=== PATIENT | male | born 1995 ===

== ENCOUNTER 2022-03-30 15:40 | Emergency (ER) | payer SELFPAY ==
[~2022-03-30] VITALS: Ht 170.2 cm; Wt 104.3 kg
[~2022-03-30 15:40] MED LIST: Cyclobenzaprine5 MG PO
[2022-03-30] MEDS ORDERED: Norco 5-325 Ta1 EACH PO (16:28)
[2022-03-30] MEDS ORDERED: CYCL10 PO (16:28)
== END 2022-03-30 16:39 | disposition home or self-care (01) ==
LOC: ER 15:40
DX: M54.31 Sciatica, right side (principal); M25.551 Pain in right hip
CPT/HCPCS: 96372; 99283; A9270; J1885